=== PATIENT | female | born 1950 | race Caucasian/White ===

== ENCOUNTER 2022-06-07 13:48 | Outpatient (CLI) | payer MEDICARE, BC, SELFPAY ==
--- NOTE | 2022-06-07 14:00 | CRLHL7_ITS ---
For Patients: As a result of the Century Cures Act, medical imaging exams and procedure reports are released immediately into your electronic medical record. You may view this report before your referring provider. If you have questions, please contact your health care provider. BILATERAL SCREENING MAMMOGRAM WITH COMPUTER-AIDED DETECTION AND TOMOSYNTHESIS TECHNIQUE: CC and MLO views were obtained. These mammographic images have been obtained using full-field digital technique. These mammographic images were interpreted with the benefit of computer-aided detection. Breast Tomosynthesis was used in this interpretation. COMPARISON FILM: 06/06/21, 06/16/20, 06/10/19. FINDINGS: There are scattered areas of fibroglandular density IMPRESSION: There is no radiographic evidence for malignancy. ASSESSMENT: BI-RADS Category 1: Negative RECOMMENDATION: Routine screening mammogram in 1 year. A lay language report of this examination will be provided to the patient. Ruddy Braswell M.D. Diagnostic Radiologist [email or web address] AGUS/Dictated by: Ruddy Braswell MD @ 06/08/2022 10:08:00 AM (Electronically Signed)
== END 2022-06-07 13:49 | disposition home or self-care (01) ==
LOC: MAMMO 13:51
PROVIDERS: PCP Obstetrics & Gynecology; Visit Provider Obstetrics & Gynecology
DX: Z12.31 Encounter for screening mammogram for malignant neoplasm of breast (principal)
CPT/HCPCS: 77063; 77067

== ENCOUNTER 2023-06-13 09:00 | Outpatient (CLI) | payer MEDICARE, BC, SELFPAY ==
--- NOTE | 2023-06-13 09:15 | CRLHL7_ITS ---
For Patients: As a result of the Century Cures Act, medical imaging exams and procedure reports are released immediately into your electronic medical record. You may view this report before your referring provider. If you have questions, please contact your health care provider. BILATERAL DIGITAL SCREENING MAMMOGRAM WITH TOMOSYNTHESIS AND COMPUTER-AIDED DETECTION CLINICAL HISTORY: Routine screening exam. COMPARISON: 06/07/2022, 06/06/2021, 06/16/2020. TECHNIQUE: Digital mammogram in CC and MLO projections including computer-aided detection (CAD). Tomosynthesis utilized. BREAST COMPOSITION: There are areas of scattered fibroglandular density. FINDINGS: RIGHT Breast: No suspicious findings. LEFT Breast: Asymmetric density deep within the LEFT breast retroareolar plane. IMPRESSION: LEFT breast asymmetry/mass. RECOMMENDATIONS: Additional mammographic views of the LEFT breast including 3D spot compression CC and 3D true lateral. LEFT breast ultrasound may also be required. BI-RADS Category 0: Incomplete: Need Additional Imaging Evaluation and/or Prior Mammograms for Comparison The [facility] will contact the patient for follow-up. A lay language report of this examination will be provided to the patient. Dictated by Ruddy Braswell MD @ 06/13/2023 11:43:55 AM jj/Dictated by: Ruddy Braswell MD @ 06/13/2023 11:43:00 AM (Electronically Signed)
== END 2023-06-13 09:01 | disposition home or self-care (01) ==
LOC: MAMMO 09:02
PROVIDERS: PCP Obstetrics & Gynecology; Visit Provider Obstetrics & Gynecology
DX: Z12.31 Encounter for screening mammogram for malignant neoplasm of breast (principal); N63.20 Unspecified lump in the left breast, unspecified quadrant
CPT/HCPCS: 77063; 77067

== ENCOUNTER 2023-06-19 10:15 | Outpatient (CLI) | payer MEDICARE, BC, SELFPAY ==
--- NOTE | 2023-06-19 10:45 | CRLHL7_ITS ---
For Patients: As a result of the Cures Act, medical imaging exams and procedure reports are released immediately into your electronic medical record. You may view this report before your referring provider. If you have questions, please contact your health care provider. DIGITAL DIAGNOSTIC LEFT MAMMOGRAM USING TOMOSYNTHESIS AND COMPUTER-AIDED DETECTION LEFT BREAST ULTRASOUND CLINICAL HISTORY: LEFT breast mass/asymmetry. COMPARISON: 06/07/2022, 06/06/2021, 06/16/2020. TECHNIQUE: Digital LEFT mammogram in two projections. Real-time ultrasound imaging of LEFT breast with imaging documentation. Scanning was performed by both the technologist and the radiologist. BREAST COMPOSITION: There are areas of scattered fibroglandular density. FINDINGS: 3D true lateral and 3D spot compression CC LEFT breast mammogram images submitted. Decreased conspicuity of the density within the posterior breast near the chest wall without underlying architectural distortion. No suspicious calcifications. Targeted LEFT breast ultrasound performed in the retroareolar plane extending laterally and inferiorly. Normal fibroglandular tissue is present. No suspicious findings. IMPRESSION: No evidence of malignancy. RECOMMENDATIONS: Annual BILATERAL screening mammography. Results and recommendations discussed with the patient. BI-RADS Category 2: Benign A lay language report of this examination will be provided to the patient. Dictated by Ruddy Braswell MD @ 06/19/2023 11:32:42 AM jj/Dictated by: Ruddy Braswell MD @ 06/19/2023 11:32:00 AM (Electronically Signed)
--- NOTE | 2023-06-19 11:15 | CRLHL7_ITS ---
For Patients: As a result of the Cures Act, medical imaging exams and procedure reports are released immediately into your electronic medical record. You may view this report before your referring provider. If you have questions, please contact your health care provider. PLEASE SEE DIGITAL DIAGNOSTIC LEFT MAMMOGRAM PERFORMED SAME DAY CRL:tita rivers/Dictated by: Ruddy Braswell MD @ 06/19/2023 11:32:00 AM (Electronically Signed)
== END 2023-06-19 10:16 | disposition home or self-care (01) ==
LOC: MAMMO 10:16
PROVIDERS: PCP Family Medicine; Visit Provider Obstetrics & Gynecology
DX: N63.20 Unspecified lump in the left breast, unspecified quadrant (principal); R92.8 Other abnormal and inconclusive findings on diagnostic imaging of breast
CPT/HCPCS: 76642; 77065; G0279

== ENCOUNTER 2023-08-22 13:46 | Outpatient (CLI) | payer MEDICARE, BC, SELFPAY ==
--- NOTE | 2023-08-22 14:00 | CRLHL7_ITS ---
For Patients: As a result of the Century Cures Act, medical imaging exams and procedure reports are released immediately into your electronic medical record. You may view this report before your referring provider. If you have questions, please contact your health care provider. DXA BONE MINERAL DENSITY STUDY Reason for exam: Hyperparathyroidism. Screening. Current height (in): 66. Weight (lb): 153. Menopause age: 52. Ethnicity: White. 1. Have you had a previous hip or vertebral fracture? No. 2. Have you had any fractures during your adult life which did not result from significant trauma (e.g., auto accident)? No. 3. Did either of your parents have a hip fracture? No. 4. Do you smoke? No. 5. Have you ever taken Glucocorticoids? No. 6. Do you have rheumatoid arthritis? No. 7. Do you have secondary osteoporosis? No. 8. Do you drink 3 or more alcoholic drinks per day? No. 9. Are you being treated for osteoporosis? No. 10. Have you ever taken any of the following medications: Actonel, Evista, Fosamax, Miacalcin, Reclast, Boniva, Forteo, HRT (i.e., estrogen/hormone therapy), Protelos, Prolia, Vitamin D, Calcium, other ??? please specify. ANSWER: Yes, vitamin D. 11. Do you have any of the following medical conditions: Anorexia or bulimia, asthma or emphysema, end stage renal disease, hyperparathyroidism, any seizure disorders, cancer, inflammatory bowel diseases, hysterectomy, other ??? please specify. ANSWER: No. 12. What was your maximum height (inches)? 66. 13. Do you perform weight bearing exercise regularly? Yes. 14. Do you regularly consume dairy products? Yes. 15. Do you drink caffeinated beverages? No. If female: 16. At what age did your period start? 14. 17. Are you premenopausal? No. 18. How many full-term pregnancies have you had? 1. 19. Have you ever missed your period for more than 6 months in a row (not including or menopause)? No. TECHNIQUE: Bone mineral density study was performed using the [employer]. FINDINGS: The results of the study expressed as bone mineral density (BMD) are as follows: Lumbar spine L1 to L4: BMD: 0.709 g/cm2. T-score: -3.1. Z-score: -0.9 Neck Left: BMD: 0.554 g/cm2. T-score: -2.7. Z-score: -0.8 Right: BMD: 0.570 g/cm2. T-score: -2.5. Z-score: -0.7 Total Left: BMD: 0.706 g/cm2. T-score: -1.9. Z-score: -0.4 Right: BMD: 0.703 g/cm2. T-score: -2.0. Z-score: -0.4 IMPRESSION: Osteoporosis. Ruddy Braswell M.D. Diagnostic Radiologist [email or web address] TAWNYA/[email or web address] jomar/Dictated by: Ruddy Braswell MD @ 08/23/2023 10:51:00 AM (Electronically Signed)
== END 2023-08-22 13:47 | disposition home or self-care (01) ==
LOC: RAD 13:48
PROVIDERS: PCP Family Medicine; Visit Provider Family Medicine
DX: Z13.820 Encounter for screening for osteoporosis (principal); M81.0 Age-related osteoporosis without current pathological fracture; E21.3 Hyperparathyroidism, unspecified
CPT/HCPCS: 77080

== ENCOUNTER 2024-06-16 10:57 | Outpatient (CLI) | payer MEDICARE, BC, SELFPAY ==
--- NOTE | 2024-06-16 11:30 | CRLHL7_ITS ---
For Patients: As a result of the Century Cures Act, medical imaging exams and procedure reports are released immediately into your electronic medical record. You may view this report before your referring provider. If you have questions, please contact your health care provider. BILATERAL SCREENING MAMMOGRAM WITH COMPUTER-AIDED DETECTION AND TOMOSYNTHESIS TECHNIQUE: CC and MLO views were obtained. These mammographic images have been obtained using full-field digital technique. These mammographic images were interpreted with the benefit of computer-aided detection. Breast Tomosynthesis was used in this interpretation. COMPARISON FILM: 06/13/23, 06/07/22, 06/06/21. FINDINGS: There are scattered areas of fibroglandular density. IMPRESSION: There is no radiographic evidence for malignancy. ASSESSMENT: BI-RADS Category 1: Negative RECOMMENDATION: Routine screening mammogram in 1 year. A lay language report of this examination will be provided to the patient. Ruddy Braswell M.D. Diagnostic Radiologist [email or web address] SP/Dictated by: Ruddy Braswell MD @ 06/16/2024 12:40:00 PM (Electronically Signed)
== END 2024-06-16 10:58 | disposition home or self-care (01) ==
LOC: MAMMO 10:58
PROVIDERS: PCP Family Medicine; Visit Provider Family Medicine
DX: Z12.31 Encounter for screening mammogram for malignant neoplasm of breast (principal)
CPT/HCPCS: 77063; 77067

== ENCOUNTER 2025-03-05 13:04 | Outpatient (CLI) | payer MEDICARE, BC, SELFPAY ==
--- NOTE | 2025-03-05 13:30 | CRLHL7_ITS ---
For Patients: As a result of the Century Cures Act, medical imaging exams and procedure reports are released immediately into your electronic medical record. You may view this report before your referring provider. If you have questions, please contact your health care provider. DXA BONE MINERAL DENSITY STUDY Reason for exam: Hyperparathyroidism. Screening. Osteoporosis. Current height (in): 66. Weight (lb): 153. Menopause age: 52. Ethnicity: White. 1. Have you had a previous hip or vertebral fracture? No. 2. Have you had any fractures during your adult life which did not result from significant trauma (e.g., auto accident)? No. 3. Did either of your parents have a hip fracture? No. 4. Do you smoke? No. 5. Have you ever taken Glucocorticoids? No. 6. Do you have rheumatoid arthritis? No. 7. Do you have secondary osteoporosis? Yes. 8. Do you drink 3 or more alcoholic drinks per day? No. 9. Are you being treated for osteoporosis? Yes. 10. Have you ever taken any of the following medications: Actonel, Evista, Fosamax, Miacalcin, Reclast, Boniva, Forteo, HRT (i.e. estrogen/hormone therapy), Protelos, Prolia, Vitamin D, Calcium, other ??? please specify. ANSWER: Yes, vitamin D and calcium. 11. Do you have any of the following medical conditions: Anorexia or bulimia, asthma or emphysema, end stage renal disease, hyperparathyroidism, any seizure disorders, cancer, inflammatory bowel diseases, hysterectomy, other ??? please specify. ANSWER: Yes, hyperparathyroidism. 12. What was your maximum height (inches)? 66. 13. Do you perform weight bearing exercise regularly? Yes. 14. Do you regularly consume dairy products? Yes. 15. Do you drink caffeinated beverages? No. 16. At what age did your period start? 14. 17. Are you premenopausal? No. 18. How many full-term pregnancies have you had? 1. 19. Have you ever missed your period for more than 6 months in a row (not including or menopause)? No. TECHNIQUE: Bone mineral density study was performed using the [employer]. FINDINGS: The results of the study expressed as bone mineral density (BMD) are as follows: Lumbar spine L1 to L4: BMD: 0.751 g/cm2. T-score: -2.7. Z-score: -0.4. Neck Left: BMD: 0.567 g/cm2. T-score: -2.5. Z-score: -0.6. Right: BMD: 0.587 g/cm2. T-score: -2.4. Z-score: -0.4. Total Left: BMD: 0.753 g/cm2. T-score: -1.6. Z-score: 0.1. Right: BMD: 0.742 g/cm2. T-score: -1.6. Z-score: 0.0. Radius Left 33%: BMD: 0.453 g/cm2. T-score: -4.0. Z-score: -1.7. IMPRESSION: Osteoporosis. *Comparison exams done prior to 01/2020 were performed on different unit, [employer]. COMPARISON: Compared with scan of 08/22/2023, the bone mineral density has increased by 6.0 percent at the spine and increased by 6.1 percent at the hip. Ruddy Braswell M.D. Diagnostic Radiologist [email or web address]/[email or web address] nelsonj/Dictated by: Ruddy Braswell MD @ 03/05/2025 3:17:00 PM (Electronically Signed)
== END 2025-03-05 13:05 | disposition home or self-care (01) ==
LOC: RAD 13:06
PROVIDERS: PCP Family Medicine; Visit Provider Internal Medicine Endocrinology, Diabetes & Metabolism
DX: Z13.820 Encounter for screening for osteoporosis (principal); M81.0 Age-related osteoporosis without current pathological fracture; E21.3 Hyperparathyroidism, unspecified
CPT/HCPCS: 77080

== ENCOUNTER 2025-05-21 09:50 | Outpatient (CLI) | payer MEDICARE, BC, SELFPAY ==
--- NOTE | 2025-05-21 10:15 | CRLHL7_ITS ---
For Patients: As a result of the Century Cures Act, medical imaging exams and procedure reports are released immediately into your electronic medical record. You may view this report before your referring provider. If you have questions, please contact your health care provider. BILATERAL DIGITAL SCREENING MAMMOGRAM WITH COMPUTER-AIDED DETECTION AND TOMOSYNTHESIS CLINICAL HISTORY: Routine screening exam. COMPARISON: 06/16/2024, 06/19/2023, 06/13/2023. TECHNIQUE: Digital mammogram in CC and MLO projections including computer-aided detection (CAD). Tomosynthesis was used in this interpretation. BREAST COMPOSITION: There are scattered areas of fibroglandular density. FINDINGS: RIGHT Breast: No suspicious findings. LEFT Breast: Focal asymmetric densities are present within the lateral LEFT breast at posterior depth 10 cm from the nipple. IMPRESSION: LEFT breast asymmetry/mass. RECOMMENDATIONS: Additional mammographic views of the LEFT breast including 3D spot compression CC/MLO. LEFT breast ultrasound may also be required. The [facility] will contact the patient. A lay language report of this examination will be provided to the patient. BI-RADS Category 0: Incomplete: Need Additional Imaging Evaluation Dictated by Ruddy Braswell MD @ 05/21/2025 11:06:33 AM jj/Dictated by: Ruddy Braswell MD @ 05/21/2025 11:06:00 AM (Electronically Signed)
== END 2025-05-21 09:51 | disposition home or self-care (01) ==
LOC: MAMMO 09:50
PROVIDERS: PCP Family Medicine; Visit Provider Family Medicine
DX: Z12.31 Encounter for screening mammogram for malignant neoplasm of breast (principal); N63.20 Unspecified lump in the left breast, unspecified quadrant
CPT/HCPCS: 77063; 77067

== ENCOUNTER 2025-05-26 08:21 | Outpatient (CLI) | payer MEDICARE, BC, SELFPAY ==
--- NOTE | 2025-05-26 08:45 | CRLHL7_ITS ---
For Patients: As a result of the Cures Act, medical imaging exams and procedure reports are released immediately into your electronic medical record. You may view this report before your referring provider. If you have questions, please contact your health care provider. DIGITAL DIAGNOSTIC LEFT MAMMOGRAM USING TOMOSYNTHESIS LEFT BREAST ULTRASOUND CLINICAL HISTORY: LEFT breast mass/asymmetry. COMPARISON: 05/21/2025, 06/16/2024, 06/19/2023. TECHNIQUE: Digital LEFT mammogram in two projections. Tomosynthesis was used in this interpretation. Real-time ultrasound imaging of LEFT breast with imaging documentation. BREAST COMPOSITION: There are scattered areas of fibroglandular density. FINDINGS: 3D spot compression CC/MLO LEFT breast mammogram images submitted. Persistent nodular densities are present within the deep LEFT breast laterally. Targeted LEFT breast ultrasound performed. At 4 o`clock 7 cm from the nipple, there is a lobular solid hypoechoic mass which measures 1.6 x 1.2 x 1.3 cm. A second similar mass is present LEFT breast 6 o`clock 11 cm from the nipple which measures 1.3 x 0.9 x 1.2 cm. Prominent LEFT axillary lymph node measures 1.9 x 0.9 x 1.1 cm. IMPRESSION: There are two suspicious masses within the LEFT breast, at 4 o`clock 7 cm from the nipple measuring 1.6 cm and at 6 o`clock 11 cm from the nipple measuring 1.3 cm. Additional suspicious LEFT axillary lymph node. RECOMMENDATIONS: Ultrasound-guided core needle biopsy of both breast lesions and the LEFT axillary lymph node. A lay language report of this examination will be provided to the patient. BI-RADS Category 4: Suspicious Dictated by Ruddy Braswell MD @ 05/26/2025 10:35:01 AM jj/Dictated by: Ruddy Braswell MD @ 05/26/2025 10:35:00 AM (Electronically Signed)
--- NOTE | 2025-05-26 09:15 | CRLHL7_ITS ---
For Patients: As a result of the Cures Act, medical imaging exams and procedure reports are released immediately into your electronic medical record. You may view this report before your referring provider. If you have questions, please contact your health care provider. SEE DIGITAL DIAGNOSTIC LEFT MAMMOGRAM PERFORMED SAME DAY CRL:tita rivers/Dictated by: Ruddy Braswell MD @ 05/26/2025 10:31:00 AM (Electronically Signed)
== END 2025-05-26 08:22 | disposition home or self-care (01) ==
LOC: MAMMO 08:22
PROVIDERS: PCP Family Medicine; Visit Provider Family Medicine
DX: N63.20 Unspecified lump in the left breast, unspecified quadrant (principal); R92.8 Other abnormal and inconclusive findings on diagnostic imaging of breast
CPT/HCPCS: 76642; 77065; G0279

== ENCOUNTER 2025-05-29 10:05 | Outpatient (CLI) | payer MEDICARE, BC, SELFPAY ==
--- NOTE | 2025-05-29 10:45 | CRLHL7_ITS ---
For Patients: As a result of the Century Cures Act, medical imaging exams and procedure reports are released immediately into your electronic medical record. You may view this report before your referring provider. If you have questions, please contact your health care provider. ULTRASOUND-GUIDED BREAST BIOPSY OF TWO OR MORE SITES AND POST-BIOPSY DIGITAL MAMMOGRAM FOR BIOPSY MARKER PLACEMENT CLINICAL HISTORY: Suspicious masses. COMPARISON STUDIES: 05/26/2025. TECHNIQUE: Real-time ultrasound with image documentation was used for targeting the breast lesions. A core needle biopsy system was used to obtain core tissue samples with a 14-gauge needle. Post-biopsy CC and ML digital mammograms were obtained to document position of the biopsy marker. CONSENT and TIME OUT: The procedure, risks, and alternatives were explained to the patient, and a consent was signed. [place] Protocol was followed including pre-procedure verification that relevant information/documentation was available, reviewed and properly matched to the patient; consent accurate and complete; and equipment and supplies available. Time Out was conducted just prior to starting procedure to verify the four required elements: patient identity, correct side/site marked (if applicable), procedure, relevant images/results properly labeled and displayed (if applicable). PROCEDURE: All biopsies were performed in a similar manner. The patient was positioned supine on the ultrasound table. The breast was prepped with ChloraPrep. 8 cc of 1 percent lidocaine used for local anesthesia. Core samples were obtained. A sterile metal biopsy clip was placed percutaneously to diana the lesion position within the breast. The specimens were placed in 10% formalin and sent to the Pathology Department. Pressure was held on the biopsy site until all bleeding subsided. The skin incision was closed with Steri-Strips. An ice pack was positioned over the biopsy site. The patient tolerated the procedure well. Post-biopsy instructions were reviewed with the patient, and a written copy was given to her. SITE A: LATERALITY: LEFT breast. LESION: Solid lobular hypoechoic mass measures 3.3 x 1.5 cm. SUSPICION: High. NUMBER OF SAMPLES: 5. BIOPSY CLIP SHAPE: Oval. PROXIMITY OF CLIP TO TARGET: Within the lesion. SITE B: LATERALITY: LEFT breast. LESION: Solid lobular hypoechoic nodule measures 1.3 x 0.9 x 1.2 cm, erroneously labeled as 6 o`clock 11 cm from the nipple on the prior study. SUSPICION: High. NUMBER OF SAMPLES: 5. BIOPSY CLIP SHAPE: HydroMARK. PROXIMITY OF CLIP TO TARGET: Within the lesion. SITE C: LATERALITY: LEFT breast. LESION: Lobular solid hypoechoic mass measures 1.6 x 1.2 x 1.3 cm. SUSPICION: High. NUMBER OF SAMPLES: 5. BIOPSY CLIP SHAPE: Oval. PROXIMITY OF CLIP TO TARGET: Within the lesion. DISTANCE BETWEEN: Sites A and B: 5 cm. Sites A and C: 5 cm. Sites B and C: 3 cm. IMPRESSION: Ultrasound-guided breast biopsy of two or more sites. When the pathology report is available, an addendum to this report will be made. ACR not applicable Dictated by Ruddy Braswell MD @ 05/29/2025 1:11:05 PM jj/Dictated by: Ruddy Braswell MD @ 05/29/2025 1:11:00 PM (Electronically Signed)
--- NOTE | 2025-05-29 11:00 | CRLHL7_ITS ---
For Patients: As a result of the Century Cures Act, medical imaging exams and procedure reports are released immediately into your electronic medical record. You may view this report before your referring provider. If you have questions, please contact your health care provider. SEE ULTRASOUND-GUIDED LEFT BREAST AND LEFT AXILLARY LYMPH NODE BIOPSY PERFORMED SAME DAY CRL:tita rivers/Dictated by: Ruddy Braswell MD @ 05/29/2025 1:08:00 PM (Electronically Signed)
--- NOTE | 2025-05-29 11:15 | CRLHL7_ITS ---
For Patients: As a result of the Century Cures Act, medical imaging exams and procedure reports are released immediately into your electronic medical record. You may view this report before your referring provider. If you have questions, please contact your health care provider. ULTRASOUND-GUIDED LEFT AXILLARY LYMPH NODE BIOPSY CLINICAL HISTORY: Suspicious LEFT axillary lymph node. COMPARISON STUDIES: 05/26/2025. TECHNIQUE: Real-time ultrasound with image documentation was used for targeting the LEFT axillary lesion. Core biopsy specimens were obtained using an automated gun with an 18-gauge biopsy needle. CONSENT and TIME OUT: The procedure, risks, and alternatives were explained to the patient, and a consent was signed. [place] Protocol was followed including pre-procedure verification that relevant information/documentation was available, reviewed and properly matched to the patient; consent accurate and complete; and equipment and supplies available. Time Out was conducted just prior to starting procedure to verify the four required elements: patient identity, correct side/site marked (if applicable), procedure, relevant images/results properly labeled and displayed (if applicable). PROCEDURE: The patient was positioned supine on the ultrasound table. The breast was prepped with ChloraPrep. 8 cc of 1 percent lidocaine used for local anesthesia. Core samples were obtained. A sterile metal biopsy clip was placed percutaneously to diana the lesion position within the breast. The specimens were placed in 10% formalin and sent to the pathology department. Pressure was held on the biopsy site until all bleeding subsided. The skin incision was closed with Steri-Strips. An ice pack was positioned over the biopsy site. Post-biopsy instructions were reviewed with the patient, and a written copy was given to her. LATERALITY: LEFT axilla. LESION: Enlarged LEFT axillary lymph node measures 1.9 x 0.9 x 1.1 cm . SUSPICION FOR MALIGNANCY: High. NUMBER OF SAMPLES: 5. BIOPSY CLIP SHAPE: Oval. PROXIMITY OF CLIP TO TARGET: Within the lesion. IMPRESSION: Ultrasound-guided LEFT axillary lymph node biopsy. When the pathology report is available, an addendum to this report will be made. ACR not applicable Dictated by Ruddy Braswell MD @ 05/29/2025 1:12:45 PM omarj/Dictated by: Ruddy Braswell MD @ 05/29/2025 1:12:00 PM (Electronically Signed)
== END 2025-05-29 10:06 | disposition home or self-care (01) ==
LOC: US 10:05
PROVIDERS: PCP Family Medicine; Visit Provider Family Medicine
DX: N63.20 Unspecified lump in the left breast, unspecified quadrant (principal); C50.912 Malignant neoplasm of unspecified site of left female breast; R92.0 Mammographic microcalcification found on diagnostic imaging of breast
CPT/HCPCS: 19083; 38505; 76942; 77065; 88305; 88360; 88361; A4648; A4649

== ENCOUNTER 2025-06-08 13:16 | Outpatient (CLI) | payer MEDICARE, BC, SELFPAY ==
--- NOTE | 2025-06-08 14:30 | CRLHL7_ITS ---
For Patients: As a result of the 21st Century Cures Act, medical imaging exams and procedure reports are released immediately into your electronic medical record. You may view this report before your referring provider. If you have questions, please contact your health care provider. BILATERAL BREAST MRI WITHOUT AND WITH GADOLINIUM CLINICAL HISTORY: Recently diagnosed LEFT breast cancer after ultrasound-guided biopsy of masses at 3 o`clock 11 cm from the nipple, 3 o`clock 6 cm from the nipple, and 4 o`clock 7 cm from the nipple. A LEFT axillary lymph node was biopsied showing metastatic carcinoma. Stereotactic-guided RIGHT breast biopsy in 2019 showed a benign fibroadenoma. INDICATION FOR BREAST MRI: Staging of newly diagnosed breast cancer and screening of contralateral breast. Regional lymph nodes will also be assessed. COMPARISON STUDIES: Mammograms 05/21/2025, 06/16/2024 and 06/13/2023. Diagnostic LEFT mammogram and LEFT breast and axillary ultrasound 05/26/2025, images from ultrasound-guided LEFT breast and axillary biopsy and post-biopsy mammogram 05/29/2025. CONTRAST: 15 mL IV Dotarem. TECHNIQUE: The patient was positioned prone using a breast coil. Multiple imaging sequences were obtained using 1-1.5 mm thick slices with no gap. The image sequences include T2-weighted STIR in the axial plane, T1-weighted nonfat-saturated gradient echo in the axial plane, pre- and post-contrast T1-weighted FLASH 3D with fat suppression in the axial plane, and T1-weighted FLASH high resolution 3D with fat suppression in the sagittal plane. Image post-processing was performed on a [employer] workstation. Complex 3D rendering including maximum intensity projections (MIPS) and volumetric renderings were obtained to optimize visualization of the extent of pathology and relationship to the nipple, skin, and chest wall. This aids in determining feasibility of breast conservation surgery. Subtraction, multiplanar reconstruction, mean curve determination, and angiogenesis mapping were also performed. The study was technically adequate. FINDINGS: Amount of Fibroglandular Tissue: Scattered fibroglandular tissue. Breast Background Enhancement: Mild. RIGHT Breast: In the retroareolar breast 2 cm posterior to the nipple there is a 0.6 x 1 x 0.6 cm oval heterogeneously enhancing mass demonstrating areas of fast initial and washout delayed phase enhancement. In the lower, slightly outer breast at 6-7 o`clock, 4 cm posterior to the nipple there is a 0.4 x 0.5 x 0.5 cm irregular mass demonstrating fast initial and washout delayed phase enhancement. Artifact from a top hat biopsy marker is noted in the inner central breast at the site of the prior benign biopsy from 2019. LEFT Breast: In the lower outer breast at 4 o`clock, 10 cm posterior to the nipple there is 1.3 x 2.2 x 1.6 cm irregular mass with spiculated margins demonstrating fast initial and washout delayed phase enhancement. There is artifact from a biopsy marker associated with the mass at the site of biopsy-proven malignancy. In the outer central breast at 3 o`clock, 10 cm posterior to the nipple there is a 1.3 x 1.3 x 1.6 cm irregular enhancing mass with spiculated margins demonstrating fast initial and washout delayed phase enhancement. There is artifact from a HydroMARK biopsy marker associated with the mass at the site of biopsy-proven malignancy. In the outer central breast at 3 o`clock, 12 cm posterior to the nipple there is a 3.2 x 1.6 x 2.3 cm irregular mass with spiculated margins demonstrating fast initial and washout delayed phase enhancement. There is artifact from a biopsy marker associated with the mass at the site of biopsy-proven malignancy. At the 3 o`clock position adjacent to the masses 10 cm and 12 cm from the nipple are several additional smaller masses measuring up to 0.6 cm which are suspicious for satellite masses. At 3 o`clock, 4 cm posterior to the nipple there is a 0.3 x 0.6 x 0.4 cm oval, circumscribed mass demonstrating fast initial and washout delayed phase enhancement. At 4 o`clock, far posterior depth, 15 cm from the nipple there is an oval, faintly enhancing mass measuring 0.8 x 1 x 0.9 cm. On the T1 weighted image this has suggestion of a fatty hilum and could represent a low intramammary lymph node. Evaluation at this location is limited due to the position at the edge of the [id number]-gi-dirv. Lymph Nodes: In the LEFT axilla there is a 1.7 x 1.3 cm abnormal morphology lymph node containing susceptibility artifact from the clip. This is the biopsy proven metastatic lymph node. Therefore, additional abnormal morphology LEFT level 1 axillary lymph nodes. No abnormal morphology lymph nodes on the right. No visible internal mammary lymph nodes. IMPRESSIONS AND RECOMMENDATIONS: RIGHT breast: 1. There is a 1 cm enhancing mass in the retroareolar breast at anterior depth and a 0.5 cm mass at 6-7 o`clock, middle depth. These are suspicious. Targeted ultrasound and possible ultrasound-guided biopsy are recommended. If there is no sonographic correlate then MRI guided biopsy should be performed. 2. No abnormal morphology lymph nodes. LEFT breast: 1. There are 3 biopsy-proven malignant LEFT breast masses. The largest mass is at 3 o`clock, 12 cm from the nipple, on MRI and measures up to 3.2 cm. There are several probable satellite lesions surrounding the masses at 3 o`clock, 10 cm and 12 cm from the nipple on MRI. Continued surgical/oncologic management is recommended. 2. At 3 o`clock, 4 cm from the nipple, there is a 0.6 cm enhancing mass. If breast conservation is planned then targeted ultrasound and ultrasound-guided biopsy would be recommended. 3. At 4 o`clock far posterior depth at the level of the IMF there is a 1 cm faintly enhancing mass. This might be a very low intramammary lymph node which could be confirmed with ultrasound or comparison with other prior cross sectional imaging, if available. 4. The biopsy proven metastatic axillary lymph node measures 1.7 cm on MRI. There are at least 4 additional abnormal morphology level 1 axillary lymph nodes. BI-RADS Category 4: Suspicious. Dictated by Dilcia Morgan MD @ 06/09/2025 11:59:58 AM /sp SP/Dictated by: Dilcia Morgan MD @ 06/09/2025 12:00:00 PM (Electronically Signed)
== END 2025-06-08 13:17 | disposition home or self-care (01) ==
LOC: MRI 13:17
PROVIDERS: PCP Family Medicine; Visit Provider Surgery
DX: C50.912 Malignant neoplasm of unspecified site of left female breast (principal); C77.3 Secondary and unspecified malignant neoplasm of axilla and upper limb lymph nodes
CPT/HCPCS: 77049; C8908; C8937; A9575

== ENCOUNTER 2025-06-11 14:54 | Outpatient (CLI) | payer MEDICARE, BC, SELFPAY ==
--- NOTE | 2025-06-11 16:00 | CRLHL7_ITS ---
For Patients: As a result of the Century Cures Act, medical imaging exams and procedure reports are released immediately into your electronic medical record. You may view this report before your referring provider. If you have questions, please contact your health care provider. CLINICAL HISTORY: Breast cancer. TECHNIQUE: Following IV injection of 48-rvmgsv-1-deoxyglucose (FDG) and a standard uptake period of approximately 60 minutes, a non-contrast CT scan followed by a PET scan were acquired along the length of the body from the mid portion of the head to the mid thighs. The non-contrast CT was used for anatomic localization and photon attenuation correction of the PET scan. Blood Glucose Level (mg/dL): 66 FDG Dose (mCi): 11.2 COMPARISON: CT scan of the abdomen and pelvis dated 15 November 2021. FINDINGS: Head/Neck: No abnormal activity identified in the head and neck. Chest: Small left supraclavicular lymph node, SUV max 3.8. No mediastinal or hilar adenopathy. Scattered mildly enlarged left axillary lymph nodes measuring up to 9 mm in short axis, SUV max 25.7. A few small right axillary lymph nodes SUV max 4.2. Three masses in the lower lateral aspect of the left breast measuring up to 2.0 cm, SUV max 13.7. The lungs show no focal pulmonary opacities. No pneumothorax. Abdomen/Pelvis: No focal abnormalities identified in the visualized portions of the liver, spleen, pancreas, adrenal glands, and kidneys. No hydronephrosis. The GI tract is incompletely distended but shows no gross abnormalities. No retroperitoneal, pelvic sidewall, or mesenteric adenopathy. Atherosclerotic vascular calcifications. Bones: No abnormal skeletal activity identified. IMPRESSION: 1. Masses in the lower lateral portion of the left breast likely represent the patient`s breast cancer. 2. Left axillary and supraclavicular nandini metastases. 3. A few small right axillary lymph nodes show increased activity and could also represent nandini metastases. Dictated by Milton Salinas MD @ 06/16/2025 7:07:29 AM (Electronically Signed)
== END 2025-06-11 14:55 | disposition home or self-care (01) ==
LOC: RAD 14:56
PROVIDERS: PCP Family Medicine; Visit Provider Surgery
DX: C50.812 Malignant neoplasm of overlapping sites of left female breast (principal); R59.0 Localized enlarged lymph nodes
CPT/HCPCS: 78815; A9552

== ENCOUNTER 2025-06-22 07:54 | Outpatient (CLI) | payer MEDICARE, BC, SELFPAY ==
--- NOTE | 2025-06-22 08:15 | CRLHL7_ITS ---
For Patients: As a result of the Century Cures Act, medical imaging exams and procedure reports are released immediately into your electronic medical record. You may view this report before your referring provider. If you have questions, please contact your health care provider. ULTRASOUND-GUIDED CORE NEEDLE BREAST BIOPSY OF TWO SITES AND POST-BIOPSY DIGITAL MAMMOGRAM FOR BIOPSY MARKER PLACEMENT CLINICAL HISTORY: Indeterminate lesions in the RIGHT breast on MRI. COMPARISON STUDIES: Breast MRI 06/08/2025. TECHNIQUE: Real-time ultrasound with image documentation was used for targeting the breast lesions. A core needle biopsy system was used to obtain core tissue samples with a 18 gauge needle. Post-biopsy CC and ML digital mammograms were obtained to document position of the biopsy marker. CONSENT and TIME OUT: The procedure, risks, and alternatives were explained to the patient and a consent was signed. [place] Protocol was followed including pre-procedure verification that relevant information/documentation was available, reviewed and properly matched to the patient; consent accurate and complete; and equipment and supplies available. Time Out was conducted just prior to starting procedure to verify the four required elements: patient identity, correct side/site marked (if applicable), procedure, relevant images/results properly labeled and displayed (if applicable). PROCEDURE: All biopsies were performed in a similar manner. The patient was positioned supine on the ultrasound table. The breast was prepped with ChloraPrep. 8 cc of 1 percent lidocaine used for local anesthesia. Core samples were obtained. A sterile metal biopsy clip was placed percutaneously to diana the lesion position within the breast. The specimens were placed in 10% formalin and sent to the Pathology Department. Pressure was held on the biopsy site until all bleeding subsided. The skin incision was closed with Steri-Strips. An ice pack was positioned over the biopsy site. The patient tolerated the procedure well. Post-biopsy instructions were reviewed with the patient, and a written copy was given to her. SITE A: LATERALITY: RIGHT breast 7 o`clock, 4 cm from the nipple, measuring 4 mm. LESION: Small hypoechoic lesion. SUSPICION: Intermediate. NUMBER OF SAMPLES: 5. BIOPSY CLIP SHAPE: Oval. PROXIMITY OF CLIP TO TARGET: Within the lesion. SITE B: LATERALITY: RIGHT breast retroareolar 6 o`clock, 1 cm from the nipple. LESION: Lobular hypoechoic focus measuring 12 mm. SUSPICION: Intermediate. NUMBER OF SAMPLES: 5. BIOPSY CLIP SHAPE: HydroMARK. PROXIMITY OF CLIP TO TARGET: Within the lesion. DISTANCE BETWEEN: Sites A and B: 3 cm. IMPRESSION: Ultrasound-guided breast biopsy of two or more sites. When the pathology report is available, an addendum to this report will be made. ACR not applicable. Dictated by Ruddy Braswell MD @ 06/22/2025 11:10:08 AM /sp SP/Dictated by: Ruddy Braswell MD @ 06/22/2025 11:10:00 AM (Electronically Signed)
--- NOTE | 2025-06-22 08:15 | CRLHL7_ITS ---
For Patients: As a result of the Cures Act, medical imaging exams and procedure reports are released immediately into your electronic medical record. You may view this report before your referring provider. If you have questions, please contact your health care provider. CLINICAL HISTORY: : Right breast lesions on MRI COMPARISON: Breast MRI 06/08/2025 TECHNIQUE: Real-time ultrasound imaging of right breast with imaging documentation. Scanning was performed by both the technologist and the radiologist. FINDINGS: Targeted right breast ultrasound performed at 6 o`clock 1 cm from the nipple in the retroareolar tissues. In this location there is a lobular hypoechoic solid nodule corresponding to the MRI which measures 1.2 cm. Subtle area of hypoechoic tissue is present within the right breast 7 o`clock 4 cm from the nipple corresponding with the MRI measuring 4 millimeters. Right axillary lymph node is present corresponding to CT PET. IMPRESSION: Indeterminate 12 millimeter lesion retroareolar right breast 6 o`clock 1 cm from the nipple and indeterminate 4 millimeter hypoechoic structure right breast 7 o`clock 4 cm from the nipple. Both of these correspond to the MRI. Right axillary lymph node corresponding to the CT PET. RECOMMENDATIONS: Ultrasound-guided biopsy of both breast lesions and right axillary lymph node will be performed subsequently. Results and recommendations were discussed with the patient at the time of the exam. A lay language report of this examination will be provided to the patient. BI-RADS Category 4. Suspicious. Dictated by Ruddy Braswell MD @ 06/22/2025 10:21:12 AM (Electronically Signed)
--- NOTE | 2025-06-22 09:00 | CRLHL7_ITS ---
For Patients: As a result of the Century Cures Act, medical imaging exams and procedure reports are released immediately into your electronic medical record. You may view this report before your referring provider. If you have questions, please contact your health care provider. ULTRASOUND-GUIDED AXILLARY LYMPH NODE BIOPSY AND BIOPSY MARKER PLACEMENT CLINICAL HISTORY: Mildly PET avid RIGHT axillary lymph nodes. COMPARISON STUDIES: CT-PET 06/11/2025. TECHNIQUE: Real-time ultrasound with image documentation was used for targeting the RIGHT axillary lymph node lesion. Core biopsy specimens were obtained using an automated gun with an 18-gauge biopsy needle. CONSENT and TIME OUT: The procedure, risks, and alternatives were explained to the patient and a consent was signed. [place] Protocol was followed including pre-procedure verification that relevant information/documentation was available, reviewed and properly matched to the patient; consent accurate and complete; and equipment and supplies available. Time Out was conducted just prior to starting procedure to verify the four required elements: patient identity, correct side/site marked (if applicable), procedure, relevant images/results properly labeled and displayed (if applicable). PROCEDURE: The patient was positioned supine on the ultrasound table. The RIGHT axilla was prepped with ChloraPrep. 10 cc of 1 percent lidocaine used for local anesthesia. Core samples were obtained. A sterile metal biopsy clip was placed percutaneously to diana the lesion position within the right axilla. The specimens were placed in 10% formalin and sent to the pathology department. Pressure was held on the biopsy site until all bleeding subsided. The skin incision was closed with Steri-Strips. An ice pack was positioned over the biopsy site. Post-biopsy instructions were reviewed with the patient, and a written copy was given to her. LATERALITY: RIGHT axilla. LESION: RIGHT axillary lymph node measures 1.8 cm. This appears to correspond with the CT-PET. SUSPICION FOR MALIGNANCY: Morphology appears normal without cortical thickening, suspicion is considered low. NUMBER OF SAMPLES: 5. BIOPSY CLIP SHAPE: Oval. PROXIMITY OF CLIP TO TARGET: Within the lesion. IMPRESSION: Ultrasound-guided RIGHT axillary lymph node biopsy. When the pathology report is available, an addendum to this report will be made. ACR not applicable. Dictated by Ruddy Braswell MD @ 06/22/2025 10:19:10 AM /sp SP/Dictated by: Ruddy Braswell MD @ 06/22/2025 10:19:00 AM (Electronically Signed)
--- NOTE | 2025-06-22 09:00 | CRLHL7_ITS ---
For Patients: As a result of the Century Cures Act, medical imaging exams and procedure reports are released immediately into your electronic medical record. You may view this report before your referring provider. If you have questions, please contact your health care provider. PLEASE SEE RIGHT ULTRASOUND-GUIDED BIOPSIES OF SAME DAY. CRL:sp SP/Dictated by: Ruddy Braswell MD @ 06/22/2025 10:15:00 AM (Electronically Signed)
== END 2025-06-22 07:55 | disposition home or self-care (01) ==
LOC: US 07:55
PROVIDERS: PCP Family Medicine; Visit Provider Surgery
DX: N63.10 Unspecified lump in the right breast, unspecified quadrant (principal); R92.8 Other abnormal and inconclusive findings on diagnostic imaging of breast
CPT/HCPCS: 19083; 38505; 76642; 76942; 77065; A4648; A4649

== ENCOUNTER 2025-06-25 10:33 | Day surgery (SDC) | payer MEDICARE, BC, SELFPAY ==
[2025-06-25] MEDS: ACETAMINOPHEN 325 MG TABLET 650 MG PO (01:55)
[2025-06-25 10:52] VITALS: BMI 25.4
[2025-06-25 10:54] VITALS: BP 141/77; PULSE 64; RESP 12; TEMP 37.3; O2SAT 99
[2025-06-25] MEDS: LACTATED RINGERS 1000 ML 1,000 ML 100 ML IV (11:11)
[2025-06-25] MEDS: SODIUM CHLORIDE 0.9 % (FLUSH) 10 ML SYRINGE IVF (11:11)
--- NOTE | 2025-06-25 11:41 | SUR.OPER ---
PATIENT QUESTIONS ANSWERED SATISFACTORILY PREOPERATIVELY. PATIENT BROUGHT TO OR #4 PER CART. Patient positioned supine on OR #4 bed. The perioperative team supported arms bilaterally on arm boards. Final approval of positioning by surgeon.
--- NOTE | 2025-06-25 12:00 | CRLHL7_ITS ---
For Patients: As a result of the Century Cures Act, medical imaging exams and procedure reports are released immediately into your electronic medical record. You may view this report before your referring provider. If you have questions, please contact your health care provider. Indication: Port-A-Cath placement Technique: One fluoroscopic image of the chest. Fluoroscopic time 23.9 seconds. IMPRESSION: Fluoroscopic guidance for Port-A-Cath placement. Dictated by Ruddy Braswell MD @ 06/25/2025 1:23:48 PM (Electronically Signed)
--- NOTE | 2025-06-25 12:20 | CRLHL7_ITS ---
For Patients: As a result of the Century Cures Act, medical imaging exams and procedure reports are released immediately into your electronic medical record. You may view this report before your referring provider. If you have questions, please contact your health care provider. INDICATION: Status post port placement TECHNIQUE: Chest 1 views. COMPARISON: None. FINDINGS/IMPRESSION: Appropriate positioning of the right-sided Ndxbtz-D-Svob catheter, tip projecting over distal SVC. No pneumothorax or effusion. Cardiac size is within normal limit without pulmonary edema. No consolidation or focal infiltrate. Dictated by Gail Perkins MD @ 06/25/2025 1:38:01 PM (Electronically Signed)
--- NOTE | 2025-06-25 12:20 | P.GSOP_ITS ---
Operative Note Date of procedure: 06/25/25 Pre-op diagnosis: Left-sided breast cancer Post-op diagnosis: Same Type of Procedure: Right internal jugular PowerPort placement with ultrasound fluoroscopic guidance Indications: The patient is a 74-year-old female who was recently diagnosed with a multifocal left-sided breast cancer. This was very low estrogen receptor positive and therefore neoadjuvant chemotherapy was recommended. Port placement was requested. Procedure Description: After discussing the risks and benefits of the procedure, the patient signed informed consent.? The operative site was marked and the patient was brought to the operating room and placed on the operating table in supine position.? Care was taken to pad the patient's pressure points.?? The patient was then given sedation by anesthesia.?? The operative site was then prepped and draped in the usual sterile fashion.? A time-out was then performed. The patient's right internal jugular vein was visualized using ultrasound. Local anesthetic was injected into the skin overlying the vein. This was accessed percutaneously using ultrasound guidance. Using Seldinger technique, a guidewire was threaded through the needle. A skin jaime was made around the wire. Next, local anesthetic was injected into the skin below the clavicle and along the proposed tract to the neck incision. A skin incision was then made with a 15 blade and a pocket created in the subcutaneous tissue with cautery. A tunneler was then used to thread the catheter from the chest wall pocket to the neck incision. Once this was done fluoroscopy was brought into the field. Over the wire the tract was dilated using fluoroscopy. The wire and the dilator were then removed leaving the sheath in the vein. Through this, the catheter was threaded. Using fluoroscopy, the catheter was positioned into the distal SVC. The catheter was noted to flush and aspirate easily. The catheter was then connected to the port. The port was placed in the pocket and secured in place with 2 0 Prolene sutures. It was noted to flush and aspirate easily. This was then locked with heparinized saline. The skin was closed with absorbable suture. Glue was then applied The patient was then woken and transported to the recovery area in stable condit ion. ? The patient tolerated the procedure well. Findings: Right IJ power port placed in the low SVC. Surgeon: Glendy Mejía MD Estimated blood loss (mL): 5 Condition: stable Disposition: same day
--- NOTE | 2025-06-25 12:20 | W.PM.H&PU ---
History & Physical Update History & Physical Update H&P Reviewed and patient assessed: No changes noted
[2025-06-25] MEDS: BUPIVACAINE 0.5% 30 ML 10 ML INJECTION (12:48)
[2025-06-25] MEDS: LIDOCAINE 1% MDV 10 ML INJECTION (12:48)
[2025-06-25] MEDS: 0.9% SODIUM CHL 50 ML VIAL INJECTION (12:55)
[2025-06-25] MEDS: HEPARIN 500 UNIT/5 ML SYRINGE 100 UNIT IVF (12:57)
[2025-06-25 13:17] VITALS: BP 115/63; PULSE 71; RESP 16; TEMP 36.3; O2SAT 98
--- NOTE | 2025-06-25 13:22 | P.ANES_ITS ---
Anesthesia Charges Start Date/Time Anesthesia Start Date: 06/25/25 Anesthesia Start Time: 12:24 Stop Date/Time Anesthesia Stop Date: 06/25/25 Anesthesia Stop Time: 13:20 Summary Extremes of Age - Over 70 or under 1: VP PUBLIC RELATIONS Coding CPT Codes CPT Codes: ANESTH VASCULAR ACCESS - 27234 ([id number]) P2 - PATIENT W/MILD SYST DISEASE, QZ - VP PUBLIC RELATIONS SVC W/O VP OF MARKETING BY Additional Codes: Summary - Extremes of Age - Over 70 or under 1: VP PUBLIC RELATIONS ([id number])
--- NOTE | 2025-06-25 13:22 | W.ANESCHARGE ---
Anesthesia Charges Start Date/Time Anesthesia Start Date: 06/25/25 Anesthesia Start Time: 12:24 Stop Date/Time Anesthesia Stop Date: 06/25/25 Anesthesia Stop Time: 13:20 Summary Extremes of Age - Over 70 or under 1: NEWSROOM INTERN Coding CPT Codes CPT Codes: ANESTH VASCULAR ACCESS - 14726 ([id number]) P2 - PATIENT W/MILD SYST DISEASE, QZ - [employer]SR[employer] INTERN SVC W/O MUCK [employer]ER BY Additional Codes: Summary - Extremes of Age - Over 70 or under 1: NEWSROOM INTERN ([id number])
[2025-06-25 13:30] VITALS: BP 119/67; PULSE 60; RESP 14; O2SAT 91
[2025-06-25 13:45] VITALS: BP 136/72; PULSE 61; RESP 14; O2SAT 94
[2025-06-25 14:00] VITALS: BP 147/66; PULSE 65; RESP 16; O2SAT 96
[2025-06-25 14:30] VITALS: BP 153/74; PULSE 56; RESP 14; TEMP 36.8; O2SAT 99
== END 2025-06-25 14:41 | disposition home or self-care (01) ==
PROVIDERS: PCP Family Medicine; Visit Provider Surgery
PROC: (CPT 36561; principal; 2025-06-25 12:00)
DX: Z45.2 Encounter for adjustment and management of vascular access device (principal); C50.912 Malignant neoplasm of unspecified site of left female breast; Z17.0 Estrogen receptor positive status [ER+]; E21.3 Hyperparathyroidism, unspecified; R63.4 Abnormal weight loss
CPT/HCPCS: 36561; 00532; 36415; 71045; 76998; 80053; 84443; 85025; 99100; 99211; J2003; A9270; C1788; J0665; J0690; J1100; J1642; J2250; J2405; J2704; J3010; J7120

== ENCOUNTER 2025-07-01 13:45 | Outpatient (CLI) | payer MEDICARE, BC, SELFPAY | END 2025-07-01 13:46 | disposition home or self-care (01) | LOC: RAD 13:46 | PROVIDERS: PCP Family Medicine; Visit Provider Internal Medicine Hematology & Oncology | DX: R01.1 Cardiac murmur, unspecified (principal); Z79.60 Long term (current) use of unspecified immunomodulators and immunosuppressants | CPT/HCPCS: 93306 ==